=== PATIENT | male | born 1970 | race Caucasian/White ===

== ENCOUNTER 2023-10-23 03:20 | Observation (INO) ==
[2023-10-23 04:24] LABS: ABS Eosinophils 0.1 10^3/uL (0.0-0.5); ABS Lymphocytes 1.6 10^3/uL (1.0-4.8); ABS Monocytes 0.7 10^3/uL (0.0-1.1); ABS Neutrophils 5.7 10^3/uL (1.5-7.6); Eosinophil % 0.7 %; Hematocrit 36.3 % (38-53); Hemoglobin 12.4 g/dL (13.2-16.3); Lymphocyte % 19.5 %; Mean Corpuscular Hemoglobin 29.5 pg (27-33); Mean Corpuscular Hgb Conc 34.2 g/dL (31-36); Mean Corpuscular Volume 86.4 fL (80-97); Mean Platelet Volume 7.4 fL (7.5-11.2); Platelet Count 210 10^3/uL (150-450); Red Cell Distribution Width 14.1 % (12-17); White Blood Count 8.1 10^3/uL (3.6-10.2)
[2023-10-23] MEDS ORDERED: Lactated Ringers 1000 ml BAG 1,000 ML IV ONE ×2 (04:30→14:52)
[2023-10-23 04:43] LABS: Albumin 4.2 g/dL (3.2-5.2); Albumin/Globulin Ratio 1.4 (1-3); C Reactive Protein 8.82 mg/L (<8.01); Calcium 8.9 mg/dL (8.6-10.3); Creatinine, Serum 0.9 mg/dL (0.67-1.17); Magnesium 1.8 mg/dL (1.9-2.7); Potassium 3.9 mmol/L (3.5-5.0); Total Protein 7.2 g/dL (6.4-8.9); eGFR CKD-EPI 102.1 (>60)
[2023-10-23 04:45] LABS: INR 1.4 (0.83-1.13)
[2023-10-23] MEDS ORDERED: Iohexol 300 (CONTRAST) 10 ML SDV IV ONE (04:54)
[2023-10-23 06:05] LABS: High Sensitivity Troponin 1 Hr 3 pg/mL (<20)
[2023-10-23] MEDS ORDERED: Al Hydrox/Mg Hydrox/Simet LIQ 30 ML UDC PO ONE (09:15)
[2023-10-23] MEDS ORDERED: Piperacillin/Tazobac 3.375 BAG 3.375 GM/100 ML BAG IV ONE ×2 (14:35→16:13)
[2023-10-23] MEDS ORDERED: Morphine 4 MG/ML VIAL (1 ml) IV ONE (14:41)
[2023-10-23] MEDS ORDERED: Acetaminophen IV 1 GM/100ML 1,000 MG/100 ML BAG IV PRN (16:09)
[2023-10-23] MEDS ORDERED: NS 0.9% 1000 ml BAG 1,000 ML IV SCH (16:15)
[2023-10-23] MEDS: HYDROmorphone 1 MG/1 ML SYRINGE IV SLOW PU PRN ×3 (16:54→22:37)
[2023-10-23] MEDS ORDERED: Zosyn per Pharmacy NOTE FOLLOW UP SCH (17:00)
[2023-10-23] MEDS: ZOSYN 3.375 GM Q8H per EXTENDED INFUSION IV SCH (19:35)
[2023-10-24] MEDS: ZOSYN 3.375 GM Q8H per EXTENDED INFUSION IV SCH (03:48)
[2023-10-24 06:51] LABS: ABS Lymphocytes 1.2 10^3/uL (1.0-4.8); ABS Monocytes 1.4 10^3/uL (0.0-1.1); ABS Neutrophils 6.5 10^3/uL (1.5-7.6); Eosinophil % 0.3 %; Hematocrit 36.1 % (38-53); Hemoglobin 12.3 g/dL (13.2-16.3); Mean Corpuscular Hemoglobin 29.7 pg (27-33); Mean Corpuscular Hgb Conc 34.2 g/dL (31-36); Mean Corpuscular Volume 86.7 fL (80-97); Mean Platelet Volume 7.4 fL (7.5-11.2); Platelet Count 189 10^3/uL (150-450); Red Blood Count 4.16 10^6/uL (4.06-5.63); Red Cell Distribution Width 14.3 % (12-17); White Blood Count 9.1 10^3/uL (3.6-10.2)
[2023-10-24 07:20] LABS: Blood Urea Nitrogen 15 mg/dL (6-24); CO2 Carbon Dioxide 24 mmol/L (22-32); Calcium 8.4 mg/dL (8.6-10.3); Chloride 111 mmol/L (101-111); Creatinine, Serum 0.89 mg/dL (0.67-1.17); Glucose 90 mg/dL (70-100); Magnesium 1.9 mg/dL (1.9-2.7); Potassium 4.1 mmol/L (3.5-5.0); Sodium 135 mmol/L (135-145); eGFR CKD-EPI 102.5 (>60)
[2023-10-24] MEDS: HYDROmorphone 1 MG/1 ML SYRINGE IV SLOW PU PRN (09:10)
[2023-10-24] MEDS ORDERED: Sevoflurane BOTTLE ONE (11:16)
[2023-10-24] MEDS ORDERED: Rocuronium 50 mg VIAL 10 mg/ml 5 ml VIAL (50 mg) ONE ×2 (11:18→12:38)
[2023-10-24] MEDS ORDERED: Propofol 10 MG/ML 20 ML BTL ONE (11:18)
[2023-10-24] MEDS ORDERED: Lidocaine 2% PF 5 ML VIAL ONE (11:18)
[2023-10-24] MEDS ORDERED: Midazolam 2 mg/2 ml VIAL 1 mg/ml 2 ml VIAL (2 mg) ONE (11:18)
[2023-10-24] MEDS ORDERED: fentaNYL 100 mcg/2 ml 50 MCG/ML VIAL ONE (11:18)
[2023-10-24] MEDS ORDERED: Lidocaine 1% w EPI 1:100,000 MDV 20 ML VIAL ONE (11:19)
[2023-10-24] MEDS ORDERED: Bupivacaine 0.5% SDV PF 30ML VIAL ONE (11:19)
[2023-10-24] MEDS ORDERED: fentaNYL 250 mcg/5 ml 50 MCG/ML 5 ml VIAL (250 MCG) ONE (11:57)
[2023-10-24] MEDS ORDERED: Acetaminophen IV 1 GM/100ML 1,000 MG/100 ML BAG IV ONE (12:18)
[2023-10-24] MEDS ORDERED: Dexamethasone IV 4 MG/ML VIAL 1 ml VIAL ONE (12:18)
[2023-10-24] MEDS ORDERED: Ondansetron 4 mg VIAL 2 MG/ML 2 ml VIAL ONE (12:18)
[2023-10-24] MEDS ORDERED: Phenylephrine IV 10 MG/ML 1 ml VIAL ONE (12:44)
[2023-10-24] MEDS ORDERED: Bacitracin OINTMENT TUBE ONE (14:07)
[2023-10-24] MEDS ORDERED: Sugammadex 500 MG/5 ML 5 ml VIAL IV PUSH ONE (14:16)
[2023-10-24 15:34] VITALS: BP 119/88
== END 2023-10-24 15:22 | disposition home or self-care (01) ==
LOC: ED 03:20 → EDHOLD 03:20 → AA 10-24 14:05
PROVIDERS: ADMIT Student in an Organized Health Care Education/Training Program; ATTEND Surgery